=== PATIENT | male | born 1990 | race Caucasian/White ===

== ENCOUNTER 2016-10-14 13:00 | Emergency (ER) | payer OTHER ==
--- NOTE | ~2016-10-14 | CR63 ---
[facility] A Service of [facility] RADIOLOGY TEXT RESULTS PATIENT: ROBERTA MACIEL LOCATION: SED : [birth year] UNIT #: [id number] AGE: [address]: Jailene Cherry APRN SEX: M ORDER DR: [id number] [place] [id number] E MR#: [id number] Acc #: [id number] NAME: ROBERTA MACIEL : 1990 SEX: M STUDY DATE/TIME: 10/14/2016 13:20 UNIT: SED ROOM: STUDY DESCRIPTION: CR Chest 2 View Attending Physician: Jailene Cherry A.P.R.N. Ordering Physician: Jailene Cherry A.P.R.N. Primary Care Physician: No Primary Care Physician MEDICAL IMAGING REPORT This report is preliminary unless electronic signature is present. EXAM 2 view chest. DATE OF EXAM 10/14/2016 HISTORY 26-year-old male with cough and fever for 1 day. COMPARISON Chest, 06/30/2014. FINDINGS 2 views of the chest demonstrate clear lungs. No pleural effusion or pneumothorax. Heart size and mediastinum normal. Pulmonary vasculature normal. IMPRESSION No acute cardiopulmonary findings. Dictated by... Judah Walter M.D. THIS IS AN ELECTRONICALLY VERIFIED REPORT Judah Walter M.D. at 10/15/2016 8:13 AM CALISTA/kin TD: 10/14/2016 17:09 JOB #: [id number] MEDICAL IMAGING REPORT [facility] A Service [facility] RADIOLOGY TEXT RESULTS PATIENT: ROBERTA MACIEL LOCATION: SED : [birth year] UNIT #: [id number] AGE: [address]: Jailene Cherry APRN SEX: M ORDER DR: Page 1 of 1
[2016-10-14 12:56] LABS: INFLUENZA A NEG (NEG); INFLUENZA B NEG (NEG)
[~2016-10-14 13:00] MED LIST: ADVIL200 M2; ALBUTEROL17 GM INH; AMOXICILLIN; IBUPROFEN800 MG PO; MEDROL4 MG/DOSE- PO; NO MEDICATIONS; ROBITUSSIN A-C S5 ML PO; VOLTAREN50 MG PO; ZITHROMAX1 G/PKT PO
[2016-10-16] MEDS ORDERED: AMOXICILLIN875 MG (15:15)
== END 2016-10-14 13:58 | disposition home or self-care (01) ==
LOC: SED 13:00
PROVIDERS: Nurse Practitioner
DX: J02.9 Acute pharyngitis, unspecified (principal); F17.200 Nicotine dependence, unspecified, uncomplicated
CPT/HCPCS: 71020; 87651; 87804; 99283

== ENCOUNTER 2016-10-16 15:29 | Emergency (ER) | payer OTHER ==
--- NOTE | ~2016-10-16 | CT4 ---
[facility] A Service of [facility] RADIOLOGY TEXT RESULTS PATIENT: ROBERTA MACIEL LOCATION: SED : [birth year] UNIT #: [id number] AGE: [address]: Mindy Warren SEX: M ORDER DR: [id number] [place] [id number] E MR#: [id number] Acc #: [id number] NAME: ROBERTA MACIEL. : 1990 SEX: M STUDY DATE/TIME: 10/16/2016 15:51 UNIT: SED ROOM: STUDY DESCRIPTION: CT Abd and Pelv Wo Cont Attending Physician: Mindy Warren Pa-C Ordering Physician: Mindy Warren Pa-C Primary Care Physician: No Primary Care Physician MEDICAL IMAGING REPORT This report is preliminary unless electronic signature is present. EXAM CT abdomen and pelvis 10/16/2016 HISTORY Right flank pain for 1 day. History of kidney stones. TECHNIQUE Axial images were obtained through the abdomen and pelvis without contrast. Multiplanar reformats were obtained. This CT exam was performed with one or more of the following radiation dose reduction techniques: automatic exposure control, adjustment of mA and/or kV according to patient size, and iterative reconstruction. COMPARISON STUDIES Comparison made with 04/10/[address] ABDOMEN: There is an apparently new 1.4 cm nodule in the right lower lobe. Given its relatively rapid onset, this is presumably infectious or inflammatory. I would recommend a followup chest CT in 3 months. Gallbladder is normal. Multiple tiny bilateral nonobstructing renal stones are seen. No ureteral stone on either side and no hydronephrosis. The unenhanced solid organs are otherwise normal. No adenopathy or free fluid is seen. The unopacified GI tract is normal. CT PELVIS: There are no lower ureteral stones. The bladder is normal. No free fluid is seen. The unopacified GI tract, including the appendix, is normal. IMPRESSION 1. 1.4 cm nodule in the right lower lobe. This appears to be a new [facility] A Service of [facility] RADIOLOGY TEXT RESULTS PATIENT: ROBERTA MACIEL LOCATION: [facility] : [birth year] UNIT #: [id number] AGE: [address]: Mindy Warren SEX: M ORDER DR: finding since 04/10/2016. Given the relatively rapid onset, an infectious or inflammatory etiology is favored. Followup chest CT in 3 months is recommended. 2. Multiple small bilateral nonobstructing renal stones. No ureteral stones are identified, there is no hydronephrosis. 3. Normal unopacified GI tract, including the appendix. Dictated by... Ori Pastrana Jr., M.D. THIS IS AN ELECTRONICALLY VERIFIED REPORT Ori Pastrana Jr., M.D. at 10/17/2016 7:24 AM Kelby TD: 10/16/2016 18:43 JOB #: [id number] MEDICAL IMAGING REPORT Page 1 of 1
[~2016-10-16 15:29] MED LIST changes: +AMOXICILLIN875 MG
[2016-10-16 15:57] LABS: BASOPHIL# 0.1 X10e3 (0-0.3); BASOPHIL% 0.6 % (0-2.5); EOSINOPHIL# 0.1 X10e3 (0-0.7); EOSINOPHIL% 0.9 % (0.0-7.0); HEMATOCRIT 40.2 % (38.0-50.0); HEMOGLOBIN 13.7 gm/dL (13.0-16.0); LYMPHOCYTE% 20.5 % (17.0-45.0); MEAN CELL VOLUME 88.7 FL (83-96); MEAN CORPUSCULAR HEMOGLOBIN 30.3 PG (28-34); MEAN CORPUSCULAR HGB CONC 34.1 g/dL (30-36); MEAN PLATELET VOLUME 9.1 FL (6.5-11.5); MONOCYTE# 0.7 X10e3 (0-1.0); MONOCYTE% 7.3 % (3.0-12.0); NEUTROPHIL# 6.8 X10e3 (1.5-7.1); NEUTROPHIL% 70.7 % (40-75); PLATELET COUNT 198 X10e3 (140-420); RED BLOOD COUNT 4.54 X10e (3.90-5.60); RED CELL DISTRIBUTION WIDTH 13.9 % (11.0-15.5); WHITE BLOOD COUNT 9.6 X10e3 (4.0-10.5)
[2016-10-16 16:10] LABS: DIFF IND NO
[2016-10-16 16:16] LABS: ALBUMIN SERUM 3.7 g/dL (3.5-5.0); BILIRUBIN,TOTAL 0.4 mg/dL (0.2-2.0); BUN/CREATININE RATIO 12.22; CALCIUM SERUM 8.6 mg/dL (8.4-10.2); CREATININE SERUM 0.9 mg/dL (0.6-1.4); GLOM FILT RATE Estimated 115.8 mL/min (>60); POTASSIUM 3.3 mmol/L (3.5-5.1); PROTEIN TOTAL SERUM 6.8 g/dL (6.0-8.3)
[2016-10-16 16:27] LABS: URINE SOURCE CLEAN CATCH
[2016-10-16 16:30] LABS: URINE APPEARANCE CLEAR; URINE BILIRUBIN NEG (NEG); URINE BLOOD NEG (NEG); URINE COLOR YELLOW; URINE GLUCOSE NEG (NORM); URINE KETONE NEG (NEG); URINE LEUKOCYTE ESTERASE NEG (NEG); URINE NITRATE NEG (NEG); URINE PH 5.5 (5-8); URINE PROTEIN NEG (NEG)
[2016-10-16 16:38] LABS: MICRO INDICATED? NO
== END 2016-10-16 17:40 | disposition home or self-care (01) ==
LOC: SED 15:29
PROVIDERS: Physician Assistant
DX: J02.9 Acute pharyngitis, unspecified (principal); R10.9 Unspecified abdominal pain; F17.210 Nicotine dependence, cigarettes, uncomplicated; Z87.442 Personal history of urinary calculi
CPT/HCPCS: 36415; 74176; 80053; 81003; 85025; 86060; 86308; 96361; 96374; 99284; J1885

== ENCOUNTER → 2016-11-20 | Outpatient (CLI) | payer OTHER ==
--- NOTE | ~2016-11-20 | CR63 ---
[facility] A Service of [facility] RADIOLOGY TEXT RESULTS PATIENT: ROBERTA MACIEL LOCATION: [facility] : [birth year] UNIT #: [id number] AGE: [address]: STACEY JONAS APRN SEX: M ORDER DR: [id number] [address] [address] [id number] O MR#: [id number] Acc #: [id number] NAME: ROBERTA MACIEL. : 1990 SEX: M STUDY DATE/TIME: 11/20/2016 10:09 UNIT: [facility] ROOM: STUDY DESCRIPTION: CR Chest 2 View Attending Physician: Stacey Jonas Aprn Referring Physician: Stacey Jonas Aprn Ordering Physician: Stacey Jonas Aprn Primary Care Physician: Stacey Jonas Aprn MEDICAL IMAGING REPORT This report is preliminary unless electronic signature is present. EXAM Chest 11/20/2016 [facility] HISTORY 26-year-old male patient with chest pain, cough, congestion and fever. 10 year smoking history. COMPARISON 10/14/2016. FINDINGS Two-view chest demonstrates normal heart size with a normal configuration. Hilar structures and mediastinal contours are preserved. Azygos fissure projects medial right apex. Bilateral lungs are clear with no infiltrates. Costophrenic angles are preserved. Bony thorax appears normal. Bilateral nipple rings again noted. IMPRESSION Negative chest. No acute finding. Dictated by... Mane Torres M.D. THIS IS AN ELECTRONICALLY VERIFIED REPORT Mane Torres M.D. at 11/20/2016 12:39 PM Herminia TD: 11/20/2016 12:28 JOB #: [id number] MEDICAL IMAGING REPORT Page 1 of 1
== END | disposition home or self-care (01) ==
LOC: SRAD 09:47
DX: R05 Cough (principal); R07.1 Chest pain on breathing; Z87.891 Personal history of nicotine dependence
CPT/HCPCS: 71020